=== PATIENT | male | born 1985 | race Caucasian/White ===

== ENCOUNTER 2017-04-16 20:18 | Emergency (ER) | payer SELFPAY ==
[~2017-04-16 20:18] MED LIST: BACTRIM DS 8001 TA1 PO; CATAFLAM50 MG PO; FLEXERIL5 MG PO; HYDROCODONE BIT1 T11 PO; KEFLEX500 MG PO; MEDROL DOSEPAK4 MG PO; NKHM; NORCO 325 MG-51 TAB PO; ZITHROMAX250 MG PO
[2017-04-16 20:27] VITALS: BP 150/100
[2017-04-16] MEDS ORDERED: NAPROSYN500 MG PO (20:32)
[2017-04-16] MEDS ORDERED: BACTRIM DS PO (20:32)
[2017-04-16] MEDS ORDERED: KEFLEX500 M1 PO (20:32)
== END 2017-04-16 20:50 | disposition home or self-care (01) ==
LOC: ED 20:18
DX: L02.11 Cutaneous abscess of neck (principal); R03.0 Elevated blood-pressure reading, without diagnosis of hypertension; F17.200 Nicotine dependence, unspecified, uncomplicated

== ENCOUNTER 2018-05-03 14:25 | Emergency (ER) | payer SELFPAY ==
[~2018-05-03] VITALS: Ht 182.8 cm; Wt 97.5 kg
[~2018-05-03 14:25] MED LIST changes: +BACTRIM DS PO; +KEFLEX500 M1 PO; +NAPROSYN500 MG PO
[2018-05-03 14:28] VITALS: BP 145/88
[2018-05-03] MEDS ORDERED: CORTISPORIN SUS10 ML OT (15:16)
[2018-05-03] MEDS ORDERED: Motrin,Rufen800 MG PO (15:19)
== END 2018-05-03 15:32 | disposition home or self-care (01) ==
LOC: ED 14:25
DX: H60.92 Unspecified otitis externa, left ear (principal); F17.200 Nicotine dependence, unspecified, uncomplicated

== ENCOUNTER 2018-08-20 03:59 | Inpatient (IN) | payer OTHER, MEDICAID ==
[~2018-08-20] VITALS: Ht 182.9 cm; Wt 91.2 kg
[2018-08-20] VITALS (10 sets, daily range): BP systolic 123–148; BP diastolic 63–100
--- NOTE | ~2018-08-20 | CON ---
[place], [place] REPORT OF CONSULTATION NAME: BELLA PRINCE UNIT #: [id number] ROOM: [facility] DOCTOR: SARAH APPLE MD BIRTHDATE: [birth year] DOS: 08/20/2018 CARDIOLOGY CONSULTATION REASON FOR CONSULTATION: Palpitations and tachycardia. HISTORY OF PRESENT ILLNESS: The patient is a 32-year-old man who has no previous history of heart disease. He states that for the last 2 months, he has noticed that his heartbeat is fast on occasion. It began gradually. He has noticed this can happen at rest or after going to the bathroom. He has felt lightheaded, but has not had any syncope. He denies any recent weight change, focal weakness, or peripheral edema. Last evening, he was playing videogames when he had to go to the bathroom. He moved his bowels and then when he got up, his heart began to race and he felt tightness in his chest radiating into his back and into his shoulders. His arms felt heavy and his hands felt tingly. He, therefore, came into the Emergency Room. He was noted to be in sinus tachycardia. The initial EKG was interpreted by the computer as showing a prolonged QT interval; however, this was an error and when I remeasured the QT, it was within normal limits with a QTc of about 415. He was noted to be hypokalemic and his potassium was replaced. He now feels somewhat better, but his heart rate is still rapid on occasion. PAST MEDICAL HISTORY: Essentially unremarkable. He specifically denies history of hypertension, diabetes, myocardial infarction, stroke, heart murmur or rheumatic fever. He has no history of anemia or blood loss. He has no history of fevers. He is on no prescribed medications and denies the use of any illegal substances at this time. REVIEW OF SYSTEMS: The patient denies diplopia or loss of vision. He has had some lightheadedness, but denies syncope. He denies focal weakness. He denies seizures. He denies fevers, chills, sweats or recent weight change. He denies heat or cold intolerance. He denies nausea or vomiting. He denies hemoptysis or hematemesis. He denies cough, fevers or chills. He denies change in bowel or bladder habits. He denies blood in the stools or urine. He denies any easy bruising or abnormal bleeding. He has not had any skin rashes. He denies any peripheral edema and denies any history of phlebitis or leg swelling. He states that his weight has increased about 50 pounds in the last 3-4 years. He attributes this to his job. 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 He denies any peripheral edema. The remainder of review of systems is negative except as noted above. FAMILY HISTORY: There is diabetes and heart disease in grandparents, but his parents are alive and well. His mother does have osteoporosis and rheumatoid arthritis, but there is no family history of early coronary disease, hypertension or heart murmur. He has a brother who is alive and well. SOCIAL HISTORY: The patient does smoke under a pack of cigarettes a day. He drinks alcohol, maybe one day a month. He does not currently take any illegal medications or drugs. He works as a dealer in a [employer]. [place], [place] REPORT OF CONSULTATION NAME: BELLA PRINCE UNIT #: [id number] ROOM: [facility] DOCTOR: SARAH APPLE MD BIRTHDATE: [birth year] PHYSICAL EXAMINATION: GENERAL: The patient is a well-nourished white male who is awake, alert and oriented. VITAL SIGNS: Pulse is 92 and regular. Blood pressure is 123/81. He is afebrile. He weighs 91.2 kg and has a body mass index of 27.3. HEENT: Normocephalic and atraumatic. Extraocular muscles are intact. Sclerae are clear. Pupils are equal, round and reactive to light. The oral mucosa is moist. Tongue is midline. NECK: Supple. He has no jugular distention. Carotids are full. I heard no bruits. He had no neck or supraclavicular masses and no thyromegaly. LUNGS: Respirations are unlabored. CHEST: Clear to auscultation and percussion. He has no presacral edema or chest wall tenderness. CARDIOVASCULAR: His heart has a regular rhythm without murmurs, rubs or gallops. The PMI is not displaced. There is no precordial heave, lift, or thrill. ABDOMEN: Soft and normally active without masses, organomegaly or bruits. EXTREMITIES: Showed no clubbing, cyanosis or edema. Peripheral pulses are easily palpated in the feet bilaterally. He has no Homans sign. LABORATORY DATA: I reviewed his electrocardiograms from admission. He did have sinus tachycardia, but no other arrhythmias. His corrected QT interval on admission was 415 and the elevated number initially reported was an error. He had no diagnostic ST or T-wave changes. Chest x-ray was unremarkable and showed normal cardiac silhouette. Hemoglobin is 16, hematocrit 46.4. There are 9700 white cells, 219,000 platelets. ABGs showed a pH of 7.505, pCO2 of 24.6, pO2 of 168 and a bicarbonate of 19.3. INR is 0.9. Lactic acid at baseline was elevated at 3, but upon repeat was 1.7. Serial troponin levels have been normal. Sodium is 139, potassium was 3.0 on admission, chloride 107, CO2 of 21, BUN 13, creatinine 1.09. Magnesium was normal at 2.0. Liver tests were all normal. TSH was ordered, but is not yet available. The patient's aspirin (salicylate) level was low at 2.4. Acetaminophen was low at 5.0. Urine drug screen was negative for all drugs of abuse. Alcohol level was unmeasurable. IMPRESSIONS: 1. Sinus tachycardia. Typically, the heart is responding to some external influence that causes this rhythm. The patient does admit to consuming excessive amounts of caffeine, but I see no other external cause thus far for the tachycardia. Specifically, he does not appear to be dehydrated, anemic or infected. Thyroid studies are, however, pending. 2. Atypical chest pain, most likely due to his palpitations and increased cardiac awareness. 3. Report of prolonged QT interval. This was an error and the patient does not have QT prolongation. PLAN: The patient's potassium is being replaced. We will continue to watch him on a monitor, although he may move out of the Intensive Care Unit from my perspective. We will be getting an echocardiogram to rule out structural heart [place], [place] REPORT OF CONSULTATION NAME: BELLA PRINCE UNIT #: [id number] ROOM: [facility] DOCTOR: SARAH APPLE MD BIRTHDATE: [birth year] disease and an exercise myocardial perfusion study in order to rule out coronary artery disease as a cause for his chest discomfort. Further recommendations will depend upon those studies. We will also wait for the result of his thyroid indices. I thank the hospitalist physicians for asking our advice regarding the patient's care. SARAH APPLE MD CM:CONSTR:REPORT OF CONSULTATION 1353 08/21/18 1115 interface
--- NOTE | ~2018-08-20 | EKG ---
[place], [place] ELECTROCARDIOGRAM REPORT NAME: BELLA PRINCE UNIT #: [id number] ROOM: [facility] DOCTOR: WILLIAMS DRAFT REPORT BIRTHDATE: [birth year] [facility] Test Date: 2018-08-20 Test Time: 06:54:35 Pat Name: BELLA PRINCE Department: Room: [facility] Gender: M Business Relations Manager: Jenifer Pearson : 1985 Requested By: TAMELA YAN Order Number: [id number] Reading MD: Darryl Singleton MD Measurements Intervals [place] Rate: 98 P: 51 AK: 149 QRS: 79 QRSD: 90 T: 13 QT: 324 QTc: 414 Interpretive Statements Sinus rhythm Compared to earlier ECG this date, rate is slower Electronically Signed On 08-20-2018 10:10:05 PST by Darryl Singleton MD CM:EKGRPT:ELECTROCARDIOGRAM REPORT [id number] 1010 TAMELA JALLOH DRAFT REPORT TAMELA YAN DO
--- NOTE | ~2018-08-20 | PR ---
[place], [place] PROGRESS NOTE NAME: BELLA PRINCE [facility] #: [id number] UNIT #: [id number] ROOM: [facility] DOCTOR: SARAH APPLE MD BIRTHDATE: [birth year] DOS: 08/21/2018 CARDIOLOGY PROGRESS NOTE SUBJECTIVE: The patient was seen in the Cardiology Department today, 08/21/2018, prior to his stress test. He is a 32-year-old man who came in to the hospital because of palpitations and tachycardia. He has ruled out for myocardial infarction. Since he was admitted, he was found to have low potassium and this has been replaced. Serial cardiac biomarkers have been normal and his electrocardiogram showed no acute changes. PHYSICAL EXAMINATION: On exam today, his pulse is 92 and regular, blood pressure is 113/77. He is afebrile. He weighs 91.2 kg and has a body mass index 27.3. HEENT, normocephalic and atraumatic. Extraocular muscles are intact. Sclerae are clear. Pupils are equal, round and react to light. The oral mucosa is moist. Tongue is midline. His neck is supple. He has no jugular distention. Carotids are full. There are no bruits. He has no neck or supraclavicular masses and no thyromegaly. Respirations are unlabored. His chest is clear to auscultation and percussion. He has no presacral edema or chest wall tenderness. His heart has a regular rhythm without murmurs, rubs or gallops. Abdomen is benign. Extremities showed no edema. LABORATORY DATA: His TSH was normal this morning at 1.250, free T4 is normal at 0.86. IMPRESSIONS: 1. Sinus tachycardia. 2. Atypical chest pain with increased cardiac awareness. PLAN: We will proceed with an exercise stress test today along with an echocardiogram. If those are normal, then no other cardiac workup would be indicated. The patient certainly does have resting tachycardia, which may be due to inappropriate sinus tachycardia. Anxiety probably does contribute to this. A low-dose beta gabo may be helpful for his symptoms. I did discuss this with him at length and he has requested that we start him on a beta-gabo therapy. I will prescribe metoprolol succinate 25 mg per day and titrate up if need be. Further recommendations depend upon the results of his stress test and echo. I thank the hospitalist physicians for asking our advice regarding his care. [place], [place] PROGRESS NOTE NAME: BELLA PRINCE UNIT #: [id number] ROOM: [facility] DOCTOR: SARAH APPLE MD BIRTHDATE: [birth year] SARHA APPLE MD CM:PNTRANS [id number] SARAH APPLE MD 08/22/18 1000 interface
--- NOTE | ~2018-08-20 | EKG ---
[place], [place] ELECTROCARDIOGRAM REPORT NAME: BELLA PRINCE UNIT #: [id number] ROOM: [facility] DOCTOR: WILLIAMS DRAFT REPORT BIRTHDATE: [birth year] [facility] Test Date: 2018-08-20 Test Time: 04:14:09 Pat Name: BELLA PRINCE Department: Room: [facility] Gender: M Photostatic Copy Maker: Janet Carlson : 1985 Requested By: TAMELA YAN Order Number: [id number] Reading MD: Darryl Singleton MD Measurements Intervals [place] Rate: 126 P: 57 GA: 130 QRS: 91 QRSD: 98 T: 23 QT: 281 QTc: 418 Interpretive Statements Sinus tachycardia Borderline right axis deviation Poor precordial R-wave progression Electronically Signed On 08-20-2018 10:08:58 PST by Darryl Singleton MD CM:EKGRPT:ELECTROCARDIOGRAM REPORT [id number] 1008 TAMELA JALLOH DRAFT REPORT TAMELA YAN DO
--- NOTE | ~2018-08-20 | EKG ---
[place], [place] ELECTROCARDIOGRAM REPORT NAME: BELLA PRINCE UNIT #: [id number] ROOM: [facility] DOCTOR: WILLIAMS DRAFT REPORT BIRTHDATE: [birth year] [facility] Test Date: 2018-08-20 Test Time: 10:20:28 Pat Name: BELLA PRINCE Department: Room: [facility] Gender: M Puppet Developer: Jenifer Pearson : 1985 Requested By: TAMELA YAN Order Number: [id number] Reading MD: Darryl Singleton MD Measurements Intervals [place] Rate: 84 P: 20 RI: 141 QRS: 79 QRSD: 91 T: 27 QT: 351 QTc: 415 Interpretive Statements Sinus rhythm ST elev, probable normal early repol pattern Compared to earlier ECG this date, rate is slower Electronically Signed On 08-20-2018 10:11:33 PST by Darryl Singleton MD CM:EKGRPT:ELECTROCARDIOGRAM REPORT 1020 1011 TAMELA JALLOH DRAFT REPORT TAMELA YAN DO
[~2018-08-20 03:59] MED LIST changes: +CORTISPORIN SUS10 ML OT; +Motrin,Rufen800 MG PO
[2018-08-20 04:24] LABS: BASO # 0.1 10*3/uL (0.0-0.1); BASO % 0.5 % (0.0-1.0); EOS # 0.3 10*3/uL (0.0-0.4); EOS % 3.5 % (1.0-4.0); HEMATOCRIT 46.4 % (42.0-52.0); LYMPH # 2.7 10*3/uL (1.3-4.4); LYMPH % 27.3 % (27.0-41.0); MEAN CELL VOLUME 93.7 fl (80.0-94.0); MEAN CORPUSCULAR HGB 32.3 pg (27.0-31.0); MEAN CORPUSCULAR HGB CONC 34.5 g/dl (33.0-37.0); MEAN PLATELET VOLUME 10.3 fl (9.6-12.3); MONO # 0.5 10*3/uL (0.1-1.0); MONO % 5.3 % (3.0-9.0); NEUT # 6.1 10*3/uL (2.3-7.9); NEUT % 63.3 % (47.0-73.0); PLATELET COUNT AUTOMATED 219 10*3/uL (130-400); RED BLOOD COUNT 4.95 10*6/uL (4.50-5.90); RED CELL DISTRI WIDTH 12.6 % (0-14.5); WHITE BLOOD COUNT 9.7 10*3/uL (4.8-10.8)
--- NOTE | 2018-08-20 04:30 | NUR ---
[facility]ION [facility]OL WAS CALLED THEY ADVISED TO CHECK AN ASPRIN AND TYLENOL LEVEL. TO DO THIS Q2H TO ESTABLISH A PEAK AND DECLINE LEVEL. IF THE ASA COMES BACK AT 30 DECIMETERS OR HIGHER BICARP WILL NEED TO BE GIVEN. DR YAN WAS NOTIFIED
[2018-08-20 04:34] LABS: INTERNATIONAL NORM RATIO 0.9 (2.0-3.5)
[2018-08-20 04:34] LABS: BILIRUBIN NEGATIVE (NEGATIVE); BLOOD NEGATIVE (NEGATIVE); CLARITY SL CLOUDY (CLEAR); COLOR YELLOW (YELLOW); GLUCOSE NEGATIVE (NEGATIVE); KETONE NEGATIVE (NEGATIVE); LEUKO ESTERASE NEGATIVE (NEGATIVE); NITRITE NEGATIVE (NEGATIVE); UROBILINOGEN 0.2 E.U./dl (0.2-1.0)
--- NOTE | 2018-08-20 04:36 | NUR ---
LAB CALLED [place] [address] DR ODOM NOTIFIED
[2018-08-20 04:41] LABS: ACETAMINOPHEN (TYLENOL) < 5.0 ug/ml (10-30); ALBUMIN 4.1 gm/dl (3.1-4.5); ALKALINE PHOSPHATASE 107 U/L (45-117); BUN 13 mg/dl (7-24); CHLORIDE 107 mmol/L (98-107); CREATININE 1.09 mg/dL (0.70-1.30); ETHYL ALCOHOL < 3.0 mg/dl (<3); SGOT/AST 22 IU/L (3-35); SGPT/ALT 49 U/L (12-78); SODIUM 139 mmol/L (136-145); TOTAL PROTEIN 7.7 gm/dL (6.4-8.2)
[2018-08-20 04:42] LABS: TROPONIN I < 0.015 ng/ml (<0.045)
[2018-08-20 04:42] LABS: BACTERIA 3+; EPITHELIAL CELLS 0-2; WBC 0-2 wbc/hpf (0-5)
[2018-08-20 04:43] LABS: URINE AMPHETAMINES < 1000 (1000ng/ml); URINE BARBITURATES < 200 (200ng/ml); URINE BENZODIAZEPINES < 200 (200ng/ml); URINE CANNABINOIDS (THC) < 50 (50ng/ml); URINE COCAINE < 300 (300ng/ml); URINE METHADONE < 300 (300ng/ml); URINE OPIATES < 300 (300ng/ml); URINE PHENCYCLIDINE < 25 (25ng/ml)
--- NOTE | 2018-08-20 05:03 | NUR ---
THE PT IS CALM AT THIS TIME. C/O FEELING WEAK AND TIRED. HIS FAMILY IS AT THE BEDISDE. CALL LIGHT IS WITHIN REACH. WILL CONTINUE TO MONITOR
[2018-08-20 06:09] LABS: ABG BASE EXCESS -1.7 mmol/L (-2.0-2.0); ABG HCO3 19.3 mmol/l (22-26); ABG O2 SATURATION 98.5 % (95-97); ARTERIAL BLOOD GAS PCO2 24.6 mmHg (35-45); ARTERIAL BLOOD GAS PH 7.505 (7.35-7.45)
--- NOTE | 2018-08-20 06:15 | NUR ---
A 32, admitted to ICCU, under the services of ZEE Mendez DO with a diagnosis of PROLONGED QT INTERVAL,TACHYCARDIA. Chief complaint is PALPITATIONS, INTERMIT CHEST PAIN. Patient arrived via stretcher from ER. Monitor applied. Initial assessment completed. Vital signs taken and recorded. ZEE MENDEZ DO notified of admission to the unit. Orders received. See assessment for past medical history, medications and allergies. Patient and/or family oriented to unit. [facility] visitation policy reviewed. Clothing/patient valuable form completed. GONZALO GAYLE
--- NOTE | 2018-08-20 06:48 | NUR ---
CARDIOLOGY CONSULT INFORMATION RELAYED TO PANCHO FOR DR APPLE.
--- NOTE | 2018-08-20 19:10 | NUR ---
CHART CHECK COMPLETE. PT'S GIRLFRIEND IS AT BEDSIDE. ASSIGNMENT DESK ASSISTANT DISPLAYS NSR 90'S.
--- NOTE | 2018-08-20 20:06 | NUR ---
PT BATHED SELF, WASHED HAIR, AND CHANGED CLOTHES. NO COMPLAINTS OFFERED. NO CARDIAC CHANGES ON MONITOR. VSS.
--- NOTE | 2018-08-20 23:26 | NUR ---
PT HAD A PM SNACK OF PEANUT BUTTER WITH CRACKERS AND LYLY JASON. HE IS WITHOUT COMPLAINTS AND IS REMINDED OF NPO AFTER MIDNIGHT ORDER FOR TESTING THIS COMING AM. HE VERBALIZES UNDERSTANDING.
[2018-08-21] VITALS: BP 122/77
[2018-08-21 04:00] VITALS: BP 112/76
[2018-08-21 05:50] LABS: BASO % 0.5 % (0.0-1.0); EOS # 0.3 10*3/uL (0.0-0.4); EOS % 4.2 % (1.0-4.0); HEMATOCRIT 45.3 % (42.0-52.0); HEMOGLOBIN 14.9 g/dl (14.0-18.0); LYMPH # 2.8 10*3/uL (1.3-4.4); LYMPH % 34.2 % (27.0-41.0); MEAN CORPUSCULAR HGB 32.1 pg (27.0-31.0); MEAN CORPUSCULAR HGB CONC 32.9 g/dl (33.0-37.0); MEAN PLATELET VOLUME 10.3 fl (9.6-12.3); MONO # 0.4 10*3/uL (0.1-1.0); MONO % 4.9 % (3.0-9.0); NEUT # 4.5 10*3/uL (2.3-7.9); PLATELET COUNT AUTOMATED 190 10*3/uL (130-400); RED BLOOD COUNT 4.64 10*6/uL (4.50-5.90); WHITE BLOOD COUNT 8.1 10*3/uL (4.8-10.8)
[2018-08-21 05:51] LABS: MEAN CELL VOLUME 97.6 fl (80.0-94.0)
[2018-08-21 06:05] LABS: BUN 13 mg/dl (7-24); CHLORIDE 110 mmol/L (98-107); CHOLESTEROL 198 mg/dL (<200); CREATININE 1.11 mg/dL (0.70-1.30); FREE T4 0.86 ng/dl (0.76-1.46); HDL CHOLESTEROL 26 mg/dl (40-60); LDL CHOLESTEROL 125 mg/dL (9-159); PHOSPHOROUS 4.5 mg/dL (2.5-4.9); SODIUM 143 mmol/L (136-145); TRIGLYCERIDES 237 mg/dl (<150); VLDL CHOLESTEROL 47 mg/dL (6-40)
[2018-08-21 06:14] LABS: POTASSIUM 4.4 mmol/L (3.5-5.1)
[2018-08-21 08:00] VITALS: BP 113/77
--- NOTE | 2018-08-21 09:00 | NUR ---
Associate Principal in to talk to patient. Patient states lives at home with his girlfriend and his mother. There are 14 steps in the home. Physician: no family physician [facility]acy: [facility] Home health services: none Patient's level of ADLs: INDEPENDENT Patient has working utilities: yes DME: none Follow-up physician's appointment after d/c: will be made by the hospitalist nurse director upon discharge Does patient want to access PORTAL?: no Discharge plan discussed with patient. He lives at home with his girlfriend and his mother. He is independent in his ADLs and ambulation. Discussed home health care services and he denies any home needs at this time. When medically stable he will be discharged to home. ZULY PRADO
[2018-08-21 09:32] LABS: VITAMIN D, 25-HYDROXY 34.5 ng/mL (30-100)
--- NOTE | 2018-08-21 12:55 | NUR ---
INFORMED CONSENT SIGNED FOR CARDIOLYTE STRESS TEST WITH DR. APPLE. RESTING EKG NSR, HR 92, BP 118/80. COMPLETED 6:15 OF A STANDARD [place]TON PROTOCOL COMPLETING 3:15 STAGE II WHICH WAS DECREASED TO 2% GRADE AT 5:15 AFTER INJECTION OF CARDIOLYTE. PEAK HEART RATE OF 168 ACHIEVED WHICH IS 88% PREDICTED MAXIMUM AND A PEAK BP OF 144/62. TEST TERMINATED D/T FATIGUE. HAS A FAIR EXERCISE TOLERANCE. NO ARRHYTHMIAS NOTED WITH NONDIAGNOSTIC ST CHANGES PRESENT. LAST RECOVERY HR 129, BP 130/78. WAITING NUCLEAR SCANNING IN STABLE CONDITION.
[2018-08-21] MEDS ORDERED: METOPROLOL SUCC25 M2 PO (15:38)
--- NOTE | 2018-08-21 16:11 | NUR ---
MARITZA LAN PT AWARE OF FOLLOW UP FLU SHOT GIVEN
== END 2018-08-21 16:11 | disposition home or self-care (01) | DRG 309 ==
LOC: ED 03:59 → EDHOLD 05:45 → ICCU 05:46
PROVIDERS: Internal Medicine; Student in an Organized Health Care Education/Training Program; ADMIT Internal Medicine
DX: R00.0 Tachycardia, unspecified (principal); E87.2 Acidosis; E87.3 Alkalosis; R07.89 Other chest pain; F17.200 Nicotine dependence, unspecified, uncomplicated; E87.6 Hypokalemia; I45.81 Long QT syndrome; R06.82 Tachypnea, not elsewhere classified; Z71.6 Tobacco abuse counseling; Z82.49 Family history of ischemic heart disease and other diseases of the circulatory system; Z83.6 Family history of other diseases of the respiratory system; Z83.3 Family history of diabetes mellitus; Z82.61 Family history of arthritis

== ENCOUNTER → 2018-08-29 | Outpatient (CLI) | payer SELFPAY ==
[~2018-08-29] MED LIST changes: +METOPROLOL SUCC25 M2 PO
== END | disposition home or self-care (01) ==
LOC: RESCLI 02:16
DX: F41.1 Generalized anxiety disorder (principal); R00.0 Tachycardia, unspecified; F17.210 Nicotine dependence, cigarettes, uncomplicated; Z76.89 Persons encountering health services in other specified circumstances; Z71.6 Tobacco abuse counseling

== ENCOUNTER 2018-08-31 16:07 | Emergency (ER) | payer SELFPAY ==
--- NOTE | ~2018-08-31 | EKG ---
[place], [place] ELECTROCARDIOGRAM REPORT NAME: BELLA PRINCE UNIT #: [id number] ROOM: DOCTOR: EPIPHANY DRAFT REPORT BIRTHDATE: [birth year] [facility] Test Date: 2018-08-31 Test Time: 16:22:00 Pat Name: BELLA PRINCE Department: Room: Gender: M Bundle Helper: : 1985 Requested By: JENNIFER SURESH Order Number: [id number] Reading MD: Sam Zamora MD Measurements Intervals [place] Rate: 150 P: 11 SD: 119 QRS: 96 QRSD: 93 T: 11 QT: 338 QTc: 534 Interpretive Statements Sinus tachycardia Borderline right axis deviation Minimal ST depression, diffuse leads Prolonged QT interval Baseline wander in lead(s) II,III,aVF,V4 Compared to ECG 08/20/2018 10:20:28 Prolonged QT interval now present Sinus rhythm no longer present ST (T wave) deviation still present Electronically Signed On 09-01-2018 15:56:31 PST by Sam Zamora MD CM:EKGRPT:ELECTROCARDIOGRAM REPORT [id number] JENNIFER SURESH MD [facility] DRAFT REPORT JENNIFER SURESH MD
[2018-08-31 17:04] LABS: BASO % 0.3 % (0.0-1.0); EOS # 0.2 10*3/uL (0.0-0.4); EOS % 2.1 % (1.0-4.0); HEMATOCRIT 47.6 % (42.0-52.0); HEMOGLOBIN 16.5 g/dl (14.0-18.0); LYMPH # 1.7 10*3/uL (1.3-4.4); LYMPH % 14.3 % (27.0-41.0); MEAN CELL VOLUME 92.2 fl (80.0-94.0); MEAN CORPUSCULAR HGB CONC 34.7 g/dl (33.0-37.0); MONO # 0.4 10*3/uL (0.1-1.0); MONO % 3.8 % (3.0-9.0); NEUT # 9.1 10*3/uL (2.3-7.9); NEUT % 79.1 % (47.0-73.0); PLATELET COUNT AUTOMATED 213 10*3/uL (130-400); RED BLOOD COUNT 5.16 10*6/uL (4.50-5.90); RED CELL DISTRI WIDTH 12.2 % (0-14.5); WHITE BLOOD COUNT 11.6 10*3/uL (4.8-10.8)
[2018-08-31 17:20] VITALS: BP 162/88
[2018-08-31 17:21] LABS: ALBUMIN 4.3 gm/dl (3.1-4.5); ALKALINE PHOSPHATASE 107 U/L (45-117); BUN 13 mg/dl (7-24); CHLORIDE 104 mmol/L (98-107); CREATININE 1.03 mg/dL (0.70-1.30); POTASSIUM 3.3 mmol/L (3.5-5.1); SGOT/AST 17 IU/L (3-35); SGPT/ALT 46 U/L (12-78); SODIUM 138 mmol/L (136-145); TOTAL PROTEIN 8.1 gm/dL (6.4-8.2)
[2018-08-31 17:23] LABS: TROPONIN I < 0.015 ng/ml (<0.045)
== END 2018-08-31 17:44 | disposition home or self-care (01) ==
LOC: ED 16:07
PROVIDERS: Family Medicine
DX: F41.0 Panic disorder [episodic paroxysmal anxiety] (principal); F17.200 Nicotine dependence, unspecified, uncomplicated; Z79.899 Other long term (current) drug therapy

== ENCOUNTER → 2018-10-05 | Outpatient (CLI) | payer SELFPAY | END | disposition home or self-care (01) | LOC: RESCLI 14:15 | DX: I10 Essential (primary) hypertension (principal); R00.0 Tachycardia, unspecified; F41.1 Generalized anxiety disorder; Z79.899 Other long term (current) drug therapy; Z88.8 Allergy status to other drugs, medicaments and biological substances ==

== ENCOUNTER → 2022-04-07 | Outpatient (CLI) | payer OTHER | END | disposition home or self-care (01) | LOC: COVID19 02:04 | PROVIDERS: ATTEND Internal Medicine | DX: Z11.52 Encounter for screening for COVID-19 (principal) ==

== ENCOUNTER 2025-02-19 10:39 | Emergency (ER) | payer OTHER ==
[~2025-02-19] VITALS: Ht 182.8 cm; Wt 104.3 kg
[2025-02-19 10:50] VITALS: BP 154/96
[2025-02-19] MEDS ORDERED: METHOCARBAMOL750 M1 PO (11:42)
[2025-02-19] MEDS ORDERED: LIDODERM1 EACH T (11:42)
== END 2025-02-19 12:46 | disposition home or self-care (01) ==
LOC: ED 10:39
DX: S39.012A Strain of muscle, fascia and tendon of lower back, initial encounter (principal); M54.16 Radiculopathy, lumbar region; Z79.899 Other long term (current) drug therapy; Z87.891 Personal history of nicotine dependence; W18.09XA Striking against other object with subsequent fall, initial encounter; Y93.89 Activity, other specified; Y92.89 Other specified places as the place of occurrence of the external cause; Y99.0 Civilian activity done for income or pay